=== PATIENT | female | born 1945 | race Caucasian/White ===

== ENCOUNTER 2024-04-21 06:04 | Day surgery (SDC) | payer MEDICARE ==
[~2024-04-21] VITALS: Ht 152.4 cm; Wt 56.7 kg
[~2024-04-21 06:04] MED LIST: AMLO1TAB25 PO; ATEN25TA PO; ATOR1TAB19 PO; HYDR-3363 PO; HYDR-3490 PO; MELO15TA28 PO; POTA-149 PO
[2024-04-21] MEDS ORDERED: fentaNYL 100 MCG/2 ML INJECTION As Ordered ONE (06:56)
[2024-04-21] MEDS ORDERED: MIDAZOLAM INJ 2MG/2ML VIAL As Ordered ONE (06:56)
[2024-04-21] MEDS: LIDOCAINE 3.5 % 1ML OPHTH TOPICAL GEL OU ONE (07:22)
[2024-04-21] MEDS: LIDOCAINE 2% W/EPINEPHRINE 20ML VIAL **PRES FREE As Ordered ONE (07:55)
[2024-04-21] MEDS: mitoMYcin 0.2 MG/VIAL KIT FOR OPHTHALMIC USE As Ordered ONE (08:10)
[2024-04-21] MEDS: TOBRADEX OPHTH OINT 3.5 GM As Ordered ONE (08:14)
[2024-04-21] MEDS: TOBRAMYCIN 80MG/2ML VIAL As Ordered ONE (08:15)
[2024-04-21] MEDS: BETAMETHASONE SOLUSPAN 6MG/ML 5ML VIAL As Ordered ONE (08:15)
[2024-04-21] MEDS: NS 250 ML IV SCH (09:05)
[2024-04-21] MEDS: ONDANSETRON 4MG 2ML VIAL IV ONE (09:05)
[2024-04-21 09:35] VITALS: BP 124/62; TEMP 98; O2SAT 96
== END 2024-04-21 09:39 | disposition home or self-care (01) ==
LOC: M SDC 06:04
PROVIDERS: ATTEND Ophthalmology
DX: H11.002 Unspecified pterygium of left eye (principal); R94.31 Abnormal electrocardiogram [ECG] [EKG]; Z79.899 Other long term (current) drug therapy; Z88.0 Allergy status to penicillin
CPT/HCPCS: 65426; 88304; J0702; J2250; J2405; J3010; J3260; J7315; V2790